=== PATIENT | male | born 1965 | race Caucasian/White ===

== ENCOUNTER → 2023-12-05 07:09 | Outpatient (REF) | payer OTHER, SELFPAY | LOC: HWRAD 07:09 | PROVIDERS: ATTENDING PHYSICIAN Family Medicine | DX: R22.2 Localized swelling, mass and lump, trunk (principal) | CPT/HCPCS: 76705 ==

== ENCOUNTER 2024-07-15 13:36 | Emergency (ER) | payer OTHER, SELFPAY ==
[2024-07-15 13:42] VITALS: BP 139/89
[2024-07-15 14:08] LABS: % Basophils 0.5 % (0-2); % Eosinophils 0.5 % (0-6); % Immature Granulocytes 0.3 % (0-0.5); % Lymphocytes 31.3 % (20.5-51.1); % Monocytes 9.4 % (1.7-9.3); Absolute Monocytes 0.6 10^3/uL (0.1-0.6); Absolute Neutrophils 3.7 10^3/uL (1.4-6.5); Hematocrit 41.4 % (39.0-52.0); Hemoglobin 14.6 g/dL (13.0-18.0); Mean Corp Hgb Conc. 35.3 g/dL (33.0-37.0); Mean Corpuscular Hgb 29.9 pg (27.0-31.0); Mean Corpuscular Volume 84.8 fL (80.0-94.0); Mean Platelet Volume 9.5 fL (7.4-10.4); Nucleated Red Blood Cells % 0 % (-); Platelet Count 225 10^3/uL (130-400); Red Blood Cell Count 4.88 10^6/uL (4.70-6.10); Red Cell Dist. Width 12.4 % (11.5-14.5); White Blood Cell Count 6.4 10^3/uL (4.8-10.8)
[2024-07-15 14:15] LABS: ALT (SGPT) 31 U/L (0-50); AST (SGOT) 30 U/L (17-59); Albumin 4.5 g/dl (3.5-5.0); Alkaline Phosphatase 60 U/L (38-126); Blood Urea Nitrogen 24 mg/dl (9-20); Calcium 9.8 mg/dl (8.4-10.2); Carbon Dioxide 23 mmol/L (22-30); Chloride 103 mmol/L (98-107); Glucose 100 mg/dl (70-99); Potassium 4.2 mmol/L (3.5-5.1); Sodium 136 mmol/L (135-145); Total Bilirubin 0.7 mg/dl (0.2-1.3); Total Protein 6.6 g/dl (6.3-8.2); eGFR > 60.00
[2024-07-15 14:27] LABS: Troponin I 0.013 ng/ml
[2024-07-15 17:06] VITALS: BP 139/96
[2024-07-15 17:57] LABS: Troponin I < 0.012 ng/ml
--- NOTE | 2024-07-15 18:27 | ED.GENMED ---
History of Present Illness
General
Chief Complaint: Chest Pain
Source: patient
Time Seen by Provider: 07/15/24 16:56
History of Present Illness
History of Present Illness:
59-year-old male with past medical history of hyperlipidemia presenting to the emergency department for evaluation of chest pain that he states for about 2 or 3 weeks has been midsternal, waxes and wanes, nonradiating with no exacerbating or
alleviating factors noting that today the pain seemed a little bit different and was more on the left side of his chest with a tightness sensation which is what prompted him to come to the ER today. Patient did not take anything for symptoms prior
to arrival. He does note that he was on his exercise bike for an hour earlier today without any symptoms while exercising but notes when he was walking up stairs from riding his bike he felt a little bit short of breath after getting to the top of
the stairs. Denies any fevers or recent illnesses. Patient does note that he travels for work and was last in [place] about a week ago. He denies cough, pleurisy, hemoptysis, lower extremity edema or any other concerns. Family history
noncontributory.
Past History
Past History
ED Past Medical History: Hypercholesterolemia and Other
ED Past Surgical History: Bowel resection and Orthopedic
Social History
Tobacco: Non-smoker
Alcohol: None
Drug: None
Personal:
Living: with family
Employment: Employed
Review of Systems
Review of Systems
All Other Systems: ROS reviewed and negative except as documented in HPI and ROS
Phy Exam
Physical Exam
Physical Exam:
GENERAL: Alert , in no apparent distress
EYE: clear conjunctiva b/l
HEAD: NCAT
ENT: o/p clr, mmm.
CARDIAC: Regular rate and rhythm .
LUNGS: Clear breath sounds bilaterally, no acute respiratory distress, no wheezes/rales/rhonchi
CHEST WALL: Clearly reproducible tenderness over the left anterior chest wall. No rashes
ABDOMEN: Soft, without focal tenderness, no r/g, no cvat
NEUROLOGICAL: Alert and oriented
SKIN: Warm and dry, skin intact.
MUSCULOSKELETAL: No edema, well perfused.
PSYCH: Normal and appropriate interaction.
Scores
Heart Failure Risk
Heart Failure Risk Score: Not Applicable
Heart Score for Chest Pain Patients
STEMI patient?: No
History: Slightly or Non-Suspicious
ECG: Normal
Age: >45 - <65 years
Risk Factors: 1 or 2 Risk Factors
Troponin: </= Normal Limit
Heart Score for Chest Pain Patients: 2
Heart Score Risk: 2.5% MACE over next 6 weeks
Withdrawal Assessment of Alcohol
Withdrawal Assessment Completed?: Not applicable
Course
Orders/Labs/Results
Orders:
Orders
07/15/24 13:37
Electrocardiogram (*1) Urgent
Reason for Study: Chest Pain
07/15/24 13:38
EKG- Treatment ONCE
07/15/24 13:53
Complete Blood Count/With Diff Urgent
Comprehensive Metabolic Panel Urgent
Troponin I Urgent
07/15/24 17:04
CR Chest - 2 Views Urgent
Comment:
Reason For Exam: chest pain, SOB
07/15/24 17:27
Troponin I Urgent
Abnormal Lab Results
07/15/24
13:53
Monocytes % 9.4 H %
(1.7-9.3)
BUN 24 H mg/dl
(9-20)
Glucose 100 H mg/dl
(70-99)
07/15/24 13:53
07/15/24 13:53
Vital Signs
Initial and Last Documented VS:
Initial Vital Signs
Temp Pulse Resp BP Pulse Ox
97.6 F 63 18 139/89 99
07/15/24 13:42 07/15/24 13:42 07/15/24 13:42 07/15/24 13:42 07/15/24 13:42
Last Documented Vital Signs
Temp Pulse Resp BP Pulse Ox
97.6 F 49 14 129/82 98
07/15/24 13:42 07/15/24 18:40 07/15/24 18:40 07/15/24 18:40 07/15/24 18:40
MDM/Problems Addressed
Differential Diagnosis Includes:
Musculoskeletal chest wall pain, I have less suspicion for ACS given patient is exercising regularly and asymptomatic while exercising during cardiovascular activities, PE also considered given travel history however patient without any cough,
pleurisy, hemoptysis or shortness of breath.
MDM/Problems Addressed:
59-year-old male presenting to the emergency department for evaluation of chest pain noting that he had pain mainly in the midsternal region for the last 2 to 3 weeks, today more along the left side of his chest. On exam pain is clearly
reproducible within the left anterior chest wall. Labs were initiated on arrival which were unremarkable. Will repeat a troponin as well as obtain chest x-ray. Anticipate discharge home with close outpatient chest pain hotline follow-up.
Also of note patient had a stress test couple of years ago as well as had a low risk calcium channel scoring couple years ago with cardiology making ACS a much less likely diagnosis.
*Radiology
Radiology exam reviewed: preliminary read by ED provider (Normal chest x-ray)
*Pulse Oximetry
Patient hypoxic: no
*EKG
Heart Rate: 56
Rate: bradycardiac
Rhythm: sinus
[place]: normal axis
Ischemia: no ischemia
*Re Dye Hand Interpretation
Rate: bradycardiac
Rhythm: sinus
*Critical Care Note
Total Time (30-74mins, 75-104mins- exclusive of procedures): Not Applicable
Patient Management
Escalation/DeEscalation of care consider admission/obs:
Patient's chest x-ray unremarkable for any acute pathologies. Repeat troponin negative. Patient hemodynamically stable in no acute distress. Again I suspect his discomfort/pain is more musculoskeletal in nature secondary to the reproducibility of
the pain. Patient to follow-up as an outpatient with cardiology. Aware of return precautions
ED Attending Note
-
Portions of this chart may have been created with voice recognition software.� Occasional wrong word or��sound alike� substitutions may have occurred due to the inherent limitations of voice recognition software.
Discharge Plan
Departure
Patient Disposition: Home (Routine Discharge)
Date of Disposition: 07/15/24
Time of Disposition: 18:28
Patient with high blood pressure during this ER visit?: Yes
Discharge Problem:
Chest pain
Instructions: Chest Pain CBC Follow Up
Prescriptions:
No Action
ezetimibe [Zetia] 10 MG tablet
10 mg PO HS
aspirin 81 MG tablet,delayed release (DR/EC)
81 mg PO DAILY
eszopiclone [Lunesta] 3 MG tablet
3 mg PO HSPRN PRN (Reason: sleep)
multivitamin with folic acid [Tab-A-Walter] 1 TABLET tablet
1 tab PO DAILY
Patient Comments:
Mens Multivit
Referrals:
Robb Valladares DO [Family Provider] -
Stand Alone Forms: Return to Work
Interventions
Interventions:
*Risk Screen - Suicide Last Done: 07/15/24 13:42
*General Assessment Last Done: 07/15/24 13:42
*Neglect/Abuse Screening Last Done: 07/15/24 13:42
*Nursing Disposition Last Done: 07/15/24 18:42
ED- Cardiac Assessment Last Done: 07/15/24 17:09
Discharge Date and Time
Discharge Date/Time: 07/15/24 18:42
Print Language: SWEDISH
[2024-07-15 18:40] VITALS: BP 129/82
== END 2024-07-15 18:42 | disposition home or self-care (01) ==
LOC: EMR 13:36
PROVIDERS: Emergency Medicine; Physician Assistant Medical; EMERGENCY PHYSICIAN Emergency Medicine; FAMILY PHYSICIAN Family Medicine
DX: R07.89 Other chest pain (principal); E78.00 Pure hypercholesterolemia, unspecified
CPT/HCPCS: 99283; 71046; 80053; 84484; 85025; 93005

== ENCOUNTER → 2024-07-23 10:42 | Outpatient (REF) | payer OTHER, SELFPAY | LOC: RCS 10:42 | PROVIDERS: ATTENDING PHYSICIAN Internal Medicine Cardiovascular Disease; FAMILY PHYSICIAN Family Medicine | DX: R06.02 Shortness of breath (principal); R07.89 Other chest pain | CPT/HCPCS: 93017; 93350 ==

== ENCOUNTER → 2024-07-26 13:35 | Outpatient (REF) | payer OTHER, SELFPAY | LOC: HWRCS 13:35 | PROVIDERS: ATTENDING PHYSICIAN Internal Medicine Cardiovascular Disease; FAMILY PHYSICIAN Family Medicine | DX: R06.02 Shortness of breath (principal); R07.89 Other chest pain | CPT/HCPCS: 93306 ==

== ENCOUNTER 2024-12-03 06:13 | Day surgery (SDC) | payer OTHER, SELFPAY ==
[2024-11-30 11:37] LABS: Hematocrit 42.9 % (39.0-52.0); Mean Corpuscular Hgb 29.6 pg (27.0-31.0); Mean Corpuscular Volume 84.8 fL (80.0-94.0); Mean Platelet Volume 10.2 fL (7.4-10.4); Platelet Count 229 10^3/uL (130-400); Red Blood Cell Count 5.06 10^6/uL (4.70-6.10); Red Cell Dist. Width 12.6 % (11.5-14.5)
[2024-11-30 11:42] LABS: Blood Urea Nitrogen 15 mg/dl (9-20); Calcium 9.8 mg/dl (8.4-10.2); Carbon Dioxide 25 mmol/L (22-30); Chloride 110 mmol/L (98-107); Potassium 4.5 mmol/L (3.5-5.1); Sodium 142 mmol/L (135-145); eGFR > 60.00
[2024-11-30 11:51] LABS: Glucose 98 mg/dl (70-99)
[2024-11-30 14:06] VITALS: BMI 31.7
[2024-12-03] VITALS (10 sets, daily range): BP systolic 95–141; BP diastolic 69–81
[2024-12-03] MEDS: Pyridium 200 MG PO (13:33)
== END 2024-12-03 14:20 | disposition home or self-care (01) ==
LOC: SDS 06:13
PROVIDERS: ATTENDING PHYSICIAN Surgery; FAMILY PHYSICIAN Family Medicine; OTHER PHYSICIAN Internal Medicine Cardiovascular Disease
DX: N40.1 Benign prostatic hyperplasia with lower urinary tract symptoms (principal); R39.14 Feeling of incomplete bladder emptying; R39.12 Poor urinary stream; R35.1 Nocturia; N32.89 Other specified disorders of bladder
CPT/HCPCS: 52000; 80048; 85027; C1769

== ENCOUNTER → 2024-12-25 07:10 | Outpatient (REF) | payer OTHER, SELFPAY ==
[2024-12-25 07:58] LABS: Hematocrit 41.9 % (39.0-52.0); Hemoglobin 14.7 g/dL (13.0-18.0); Mean Corp Hgb Conc. 35.1 g/dL (33.0-37.0); Mean Corpuscular Volume 85.5 fL (80.0-94.0); Nucleated Red Blood Cells % 0 % (-); Platelet Count 228 10^3/uL (130-400); Red Cell Dist. Width 12.5 % (11.5-14.5)
[2024-12-25 08:21] LABS: Blood Urea Nitrogen 17 mg/dl (9-20); Calcium 9.9 mg/dl (8.4-10.2); Carbon Dioxide 26 mmol/L (22-30); Chloride 108 mmol/L (98-107); Glucose 111 mg/dl (70-99); Potassium 4.5 mmol/L (3.5-5.1); Sodium 138 mmol/L (135-145); eGFR > 60.00
== END ==
LOC: RCS 07:10
PROVIDERS: ATTENDING PHYSICIAN Specialist; FAMILY PHYSICIAN Family Medicine
DX: Z01.818 Encounter for other preprocedural examination (principal)
CPT/HCPCS: 36415; 80048; 85025; 93005

== ENCOUNTER → 2025-02-25 09:03 | Outpatient (REF) | payer OTHER, SELFPAY | LOC: EMG 09:03 | PROVIDERS: ATTENDING PHYSICIAN Specialist | DX: G56.21 Lesion of ulnar nerve, right upper limb (principal); R20.0 Anesthesia of skin | CPT/HCPCS: 95886; 95909 ==

== ENCOUNTER 2025-03-18 07:01 | Outpatient (RCR) | payer SELFPAY | END 2025-03-18 23:59 | disposition home or self-care (01) | LOC: RPT 07:01 | PROVIDERS: ATTENDING PHYSICIAN Physician Assistant Surgical; FAMILY PHYSICIAN Family Medicine | DX: Z47.89 Encounter for other orthopedic aftercare (principal); G56.11 Other lesions of median nerve, right upper limb; Z73.6 Limitation of activities due to disability; M62.81 Muscle weakness (generalized) | CPT/HCPCS: 97110; 97161 ==

== ENCOUNTER 2025-04-13 06:50 | Outpatient (RCR) | payer SELFPAY | END 2025-04-13 23:59 | disposition home or self-care (01) | LOC: RPT 06:50 | PROVIDERS: ATTENDING PHYSICIAN Physician Assistant Surgical; FAMILY PHYSICIAN Family Medicine | DX: Z47.89 Encounter for other orthopedic aftercare (principal); G56.11 Other lesions of median nerve, right upper limb; Z73.6 Limitation of activities due to disability; M62.81 Muscle weakness (generalized) | CPT/HCPCS: 97010; 97110; 97112; 97140 ==

== ENCOUNTER 2025-05-17 06:51 | Outpatient (RCR) | payer SELFPAY | END 2025-05-17 10:32 | disposition home or self-care (01) | LOC: ROT 06:51 | PROVIDERS: ATTENDING PHYSICIAN Physician Assistant Surgical; FAMILY PHYSICIAN Family Medicine | DX: Z47.89 Encounter for other orthopedic aftercare (principal); G56.11 Other lesions of median nerve, right upper limb; Z73.6 Limitation of activities due to disability; M62.81 Muscle weakness (generalized) | CPT/HCPCS: 97018; 97110; 97140; 97166 ==

== ENCOUNTER → 2025-05-17 09:24 | Outpatient (REF) | payer OTHER, SELFPAY | LOC: EMG 09:24 | PROVIDERS: ATTENDING PHYSICIAN Physician Assistant Surgical; FAMILY PHYSICIAN Family Medicine | DX: G56.11 Other lesions of median nerve, right upper limb (principal); R20.0 Anesthesia of skin | CPT/HCPCS: 95886; 95908 ==

== ENCOUNTER 2025-05-23 13:50 | Outpatient (RCR) | payer SELFPAY | END 2025-05-23 23:59 | disposition home or self-care (01) | LOC: ROT 13:50 | PROVIDERS: ATTENDING PHYSICIAN Physician Assistant Surgical; FAMILY PHYSICIAN Family Medicine | DX: Z47.89 Encounter for other orthopedic aftercare (principal); G56.11 Other lesions of median nerve, right upper limb; Z73.6 Limitation of activities due to disability; M62.81 Muscle weakness (generalized) | CPT/HCPCS: 97018; 97112 ==